=== PATIENT | female | born 1985 | race Caucasian/White ===

== ENCOUNTER 2017-02-26 01:01 | Emergency (ER) | payer OTHER, MEDICAID ==
[~2017-02-26] VITALS: Ht 162.6 cm; Wt 69.8 kg
[2017-02-26 02:48] VITALS: BP 128/78
== END 2017-02-26 02:48 | disposition home or self-care (01) ==
LOC: ED 01:01
DX: T78.3XXA Angioneurotic edema, initial encounter (principal); R21 Rash and other nonspecific skin eruption
CPT/HCPCS: J0171; J7512

== ENCOUNTER 2018-05-31 02:27 | Emergency (ER) | payer MEDICAID ==
[~2018-05-31] VITALS: Ht 162.6 cm; Wt 76.2 kg
[2018-05-31 05:52] VITALS: BP 112/69
== END 2018-05-31 05:52 | disposition home or self-care (01) ==
LOC: ED 02:27
DX: T78.1XXA Other adverse food reactions, not elsewhere classified, initial encounter (principal); T78.3XXA Angioneurotic edema, initial encounter; X58.XXXA Exposure to other specified factors, initial encounter; E03.9 Hypothyroidism, unspecified; Z90.89 Acquired absence of other organs; Z98.890 Other specified postprocedural states; Z86.19 Personal history of other infectious and parasitic diseases
CPT/HCPCS: J0171; J2930; J3490; J7030

== ENCOUNTER 2018-06-12 22:50 | Emergency (ER) | payer OTHER, MEDICAID ==
[~2018-06-12] VITALS: Ht 162.6 cm; Wt 77.1 kg
[2018-06-12 22:53] VITALS: Ht 162.6 cm; Wt 77.1 kg
[2018-06-13 00:49] VITALS: BP 105/51
== END 2018-06-13 00:49 | disposition home or self-care (01) ==
LOC: ED 22:50
DX: L50.9 Urticaria, unspecified (principal); Z90.89 Acquired absence of other organs; E03.9 Hypothyroidism, unspecified; Z98.890 Other specified postprocedural states
CPT/HCPCS: J1200; J2930; J3490